=== PATIENT | male | born 1985 | race Two or more races ===

== ENCOUNTER 2019-04-03 07:41 | Emergency (ER) | payer OTHER ==
[~2019-04-03] VITALS: Ht 170.2 cm; Wt 72.1 kg
--- NOTE | 2019-04-03 07:48 | NUR ---
[email or web address], from home, sob 97% on room air, started this morning around 7am newly diagnosed with myasthenia gravis. on room air, 02sat 98%. Connected to the monitor and pulse ox. kept comfortable, will continue to monitor accordingly.
--- NOTE | 2019-04-03 08:06 | NUR ---
patient noted on respiratory distress with labored breathing, informed MD and made aware
[2019-04-03] MEDS ORDERED: PROPOFOL 100 ML ONE ×6 (08:07→23:27)
--- NOTE | 2019-04-03 08:10 | NUR ---
intubation ended with vent settings: ET tube 8.0/25cm, TV 500, peep 5, 02 100%, NGT connected to intermittent suctioning, Lynn cath F16 inserted.
--- NOTE | 2019-04-03 08:15 | NUR ---
RT REPORT, ER ROOM # 4 PT. 33 Y OLD MALE @0808 PT. AMBU BAGGED @[address] KHANNA ETT # 8.0 @ 25 CM LIP LINE,GOOD COLOR EXCHANGED NOTED VIA CAPNOGRAPHY, EQUAL CHEST RISE NOTED PT. PLACED ON VENT WITH NOTED SETTINGS, ALARMS ARE SET AND FUNCTIONAL, B/S BILATERALLY RALES SUX'D FOR MODERATE AMT PINKISH THIN SECRETIONS, COMMERCIAL REAL ESTATE ATTORNEY DONE NO DISTRESS , AMBU BAG AT THE BEDSIDE. VENT PLUGGED INTO RED OUTLET. CONTINUE TO MONITOR CLOSELY. Addendum: 04/03/19 at 1654 by HIMA FAY RT Amended: Links added.
--- NOTE | 2019-04-03 08:22 | NUR ---
CALLED DR. MEDLEY AT [phone] [employer] [facility] WILL SEND MSG OUT.
[2019-04-03 08:26] LABS: BASOPHILS # (AUTO) 0.2 /CMM (0.0-0.2); BASOPHILS % (AUTO) 1.3 % (0.0-2.0); EOSINOPHILS % (AUTO) 0.7 % (0.0-6.0); HEMATOCRIT 51 % (39-51); HEMOGLOBIN 16.7 g/dL (13.5-17.5); LYMPHOCYTES # (AUTO) 4.4 /CMM (0.8-4.8); LYMPHOCYTES % (AUTO) 29.2 % (20.0-44.0); MEAN CORPUSCULAR HGB CONC 33 g/dl (31.0-36.0); MEAN CORPUSCULAR VOLUME 96 fL (80-96); MONOCYTES # (AUTO) 0.7 /CMM (0.1-1.30); MONOCYTES % (AUTO) 4.4 % (2.0-12.0); NEUTROPHILS # (AUTO) 9.6 /CMM (1.8-8.9); NEUTROPHILS % (AUTO) 64.4 % (43.0-81.0); PLATELET COUNT (AUTO) 338 /CMM (150-450); RED BLOOD CELL COUNT(AUTO) 5.34 MIL/uL (4.5-6.0); WHITE BLOOD COUNT (AUTO) 14.9 K/uL (4.3-11.0)
[2019-04-03] MEDS ORDERED: PROPOFOL 200 MG/20 ML VIAL IV ONE (08:30)
[2019-04-03] MEDS ORDERED: PROPOFOL 10MG/ML 50ML 50 ML IV PRN (08:30)
[2019-04-03 08:31] LABS: CALCIUM, SERUM 8.6 mg/dL (8.5-10.1); CREATININE 1.2 mg/dL (0.6-1.3); POTASSIUM 2.9 mmol/L (3.5-5.1)
[2019-04-03] MEDS ORDERED: IV PREMIX 0.45% NS + KCL 1,000 ML IV ONE (08:45)
--- NOTE | 2019-04-03 08:53 | NUR ---
NAIMA GONZALES [phone] SPOKE W [facility] [phone]
[2019-04-03] MEDS ORDERED: IV NS 0.9% 1,000 ML BAG IV ONE ×2 (09:00→22:30)
--- NOTE | 2019-04-03 09:55 | NUR ---
G DONE RESULTS REPORTED TO ER. . NO VENTILATOR CHANGES PER DR. KHANNA.
[2019-04-03 09:57] LABS: ABG BASE EXCESS -1.5 mmol/L; ABG OXYGEN SATURATION 97.4 % (92.0-98.5); ABG PCO2 42.6 mmHg (35.0-45.0); ABG PH 7.366 (7.350-7.450); ABG PO2 118.4 mmHg (75.0-100.0); COHb 0.5 % (0.5-1.5); MetHb 0.5 % (0.0-1.5); O2Hb 96.4 % (94.0-97.0); PEEP,BG 5 cm H2O; SITE, ABG Left Radial; VT, ABG 500 mL
[2019-04-03] MEDS ORDERED: IOHEXOL-300 100 ML VIAL IV ONE (10:35)
[2019-04-03] MEDS ORDERED: IV NS 0.9% 250 ML IV ONE (10:35)
[2019-04-03] MEDS ORDERED: CT SWABBABLE VALVE TRANS SET 1 EA INFUS.SET MC ONE (10:35)
--- NOTE | 2019-04-03 10:59 | NUR ---
BRANDON FROM [facility] CALLED AND SAID THAT THEY DO NOT HAVE ANY BEDS. SHE SAID THAT DR. MEDLEY ALSO IS AT [facility]. CALLING THERE NEXT.
--- NOTE | 2019-04-03 11:00 | NUR ---
wheeled patient via gurney accompanied by RN and RT in no distress for ct.
--- NOTE | 2019-04-03 11:05 | NUR ---
patient came back from ct
--- NOTE | 2019-04-03 11:07 | NUR ---
CALLED [facility] [phone] ---> BED CONTROL [facility] [phone]---> [employer] [facility] [phone] MEDLEY DOES NOT PRACTICE THERE? CALLING DR. MEDLEY AGAIN.
--- NOTE | 2019-04-03 11:11 | NUR ---
CALLED DR. MEDLEY [phone] TO CALL US BACK.
[2019-04-03] MEDS ORDERED: PIPERACILLIN /TAZOBACTAM 3.375 G in IV D5W 50 ML IV ONE (12:00)
[2019-04-03] MEDS ORDERED: IV PREMIX D5 1/2NS + KCL 1,000 ML IV ONE (13:46)
--- NOTE | 2019-04-03 15:35 | NUR ---
PT ACCEPTED BT DR ZHAO AT [facility], TO [facility] ICU BED 1, RN FOR REPORT [phone]
--- NOTE | 2019-04-03 16:22 | NUR ---
Report given to Esme DESAI from [facility] for damir.
--- NOTE | 2019-04-03 16:37 | NUR ---
[facility] CCT UNIT, ETA 1999 TRIP#[id number]
--- NOTE | 2019-04-03 19:51 | NUR ---
[facility] UPDATED ETA 1724
--- NOTE | 2019-04-03 19:51 | NUR ---
CALLED [facility], NO [facility] AVAILABLE AT THIS TIME
--- NOTE | 2019-04-03 20:00 | NUR ---
[facility] CCT ETA 2135
--- NOTE | 2019-04-03 21:27 | NUR ---
[facility] DELAY [phone]
--- NOTE | 2019-04-03 21:40 | NUR ---
0PT IN BED RESTING COMFORTABLE . NOT COMPL
--- NOTE | 2019-04-03 22:51 | NUR ---
ETA 15 MINUTES
[2019-04-03 23:28] VITALS: BP 106/81
--- NOTE | 2019-04-03 23:29 | NUR ---
REPORT GIVEN TO lpn private duty AND CCRN FROM [facility]
--- NOTE | 2019-04-03 23:44 | NUR ---
PT WAS PICKED UP BY [facility] VIA GURNEY IN STABLE CONDITION UNDER ACLS W/ ACOMPANY OF CCRN.
== END 2019-04-03 23:46 | disposition short-term general hospital (02) ==
LOC: ER 07:42
DX: J96.00 Acute respiratory failure, unspecified whether with hypoxia or hypercapnia (principal); G61.0 Guillain-Barre syndrome; J69.0 Pneumonitis due to inhalation of food and vomit; E87.6 Hypokalemia
CPT/HCPCS: 31500; 36415; 36600 ×2; 51702; 71045; 71270; 74178; 80048; 82803; 85025; 93005; 96365; 96366; 96368; 99082; 99291; J2543; J3490 ×6; J7030 ×4; J7050; J7060; Q9967